=== PATIENT | male | born 1940 | race Caucasian/White ===

== ENCOUNTER 2020-08-07 19:09 | Emergency (ER) | payer MEDICARE, SELFPAY ==
[2020-08-07 19:37] VITALS: BP 173/98; PULSE 80; RESP 20; TEMP 36.2; O2SAT 99
[2020-08-07 20:26] VITALS: BP 181/94; PULSE 64; RESP 18; TEMP 36.9; O2SAT 97
--- NOTE | 2020-08-07 21:35 | ED.GENADULT ---
HPI - General Adult General Chief complaint: Skin/Abscess/Foreign Body Stated complaint: bump on abdomen Time Seen by Provider: 08/07/20 20:18 Source: patient Mode of arrival: ambulatory Limitations: no limitations History of Present Illness HPI narrative: Patient is 80 years old white male noticed a bulge at the right lower quadrant last night, today is getting worse. Patient denies any fever, chills, nausea, vomiting, urinary symptoms, constipation or diarrhea. Patient denies a history of abdominal surgery. Related Data Home Medications Medication Instructions Recorded Confirmed diclofenac sodium PO 08/07/20 linaclotide [Linzess] mcg 08/07/20 lisinopril 08/07/20 tamsulosin mg PO 08/07/20 Allergies Allergy/AdvReac Type Severity Reaction Status Date / Time No Known Allergies Allergy Mild Verified 08/07/20 20:40 Review of Systems Review of Systems: Narrative: CONSTITUTIONAL: Denies fever, chills, or sweats. EYES: Denies visual changes, redness, or discharge. ENT: Denies rhinorrhea, congestion, sore throat, or otalgia. CARDIOVASCULAR: Denies chest pain, palpitations, or edema. RESPIRATORY: Denies cough or dyspnea. GASTROINTESTINAL: Denies abdominal pain, nausea, vomiting, or diarrhea. GENITOURINARY: Denies dysuria or hematuria. SKIN: Denies rash or itching. MUSCULOSKELETAL: Denies back pain, joint pain, or myalgia. NEUROLOGIC: Denies headache, numbness, or weakness. PSYCHIATRIC: Denies anxiety or depression. PMFSH Social History Social History Gender identity (if verbalized by the patient): Male Exam Narrative: Exam Narrative: General appearance: Well-developed, well-nourished Skin: Normal color Head: Normocephalic, nontraumatic Eyes: Clear conjunctiva ENT: Oropharynx normal, ears normal, nose normal Neck: Supple, nontender Chest and respiratory: Airway patent, no respiratory distress, no accessory muscle use Heart: Regular rate/rhythm Abdomen: Soft, large bulging at the right lower quadrant, diffusely tender, firm in consistency, quiet bowel sounds no erythema, no rash Vascular: Normal peripheral pulses, normal capillary refill. Musculoskeletal: Normal range of motion, nontender back Neurologic: Alert and oriented ?3, ATHLETICS DIRECTOR is normal as tested, no gross motor deficit Course Course Emergency Course: Improved Consultations Consultation #1: Dr. Barahona See patient tomorrow Date: 08/07/20 Time: 21:38 Vital Signs Vital signs: Vital Signs Temperature 36.2 C L 08/07/20 19:37 Pulse Rate 80 08/07/20 19:37 Respiratory Rate 20 08/07/20 19:37 Blood Pressure 173/98 H 08/07/20 19:37 Pulse Oximetry 99 08/07/20 19:37 Temperature 36.9 C 08/07/20 20:26 Pulse Rate 64 08/07/20 20:26 Respiratory Rate 18 08/07/20 20:26 Blood Pressure 181/94 H 08/07/20 20:26 Pulse Oximetry 97 08/07/20 20:26 Procedures Other Procedure Procedure 1: Other Procedure: Right inguinal hernia reduction under constant pressure using my hands lasted for 3 minutes. Patient tolerated the procedure well. Medical Decision Making MDM Narrative Medical decision making narrative: Inguinal hernia is my concern, I was able to reduce it, patient will be discharged to follow-up with Dr. Barahona tomorrow Vital Signs Vital Signs: Vital Signs Temperature 36.2 C L 08/07/20 19:37 Pulse Rate 80 08/07/20 19:37 Respiratory Rate 20 08/07/20 19:37 Blood Pressure 173/98 H 08/07/20 19:37 Pulse Oximetry 99 08/07/20 19:37 Temperature 36.9 C 08/07/20 20:26 Pulse Rate 64 08/07/20 20:26 Respiratory Rate 18 08/07/20 20:26 Blood Pressure 181/94 H 08/07/20 20:26 P
[2020-08-07 21:50] VITALS: BP 186/97; PULSE 59; RESP 18; O2SAT 97
== END 2020-08-07 21:53 | disposition home or self-care (01) ==
PROVIDERS: Emergency Provider Emergency Medicine; PCP Family Medicine Adolescent Medicine
DX: K40.90 Unilateral inguinal hernia, without obstruction or gangrene, not specified as recurrent (principal)
CPT/HCPCS: 99282

== ENCOUNTER 2020-10-01 16:07 | Emergency (ER) | payer MEDICARE, SELFPAY ==
[2020-10-01 16:43] VITALS: BP 153/90; PULSE 81; RESP 17; TEMP 36.6; O2SAT 98
--- NOTE | 2020-10-01 17:32 | ED.GENADULT ---
HPI - General Adult General Chief complaint: Urogenital-Male Stated complaint: groin pain Time Seen by Provider: 10/01/20 16:56 Source: patient Mode of arrival: ambulatory Limitations: no limitations History of Present Illness HPI narrative: Patient is an 80-year-old male who presents with hernia in the right groin patient been seen in the ER for this prior and followed with surgery and opted not to have surgery and then this day had a recurrence of swelling and tenderness in the same location was unable to reduce the hernia. Patient presents in no distress notes mild aching pain in the right groin worse with palpation Related Data Home Medications Medication Instructions Recorded Confirmed diclofenac sodium PO 08/07/20 08/12/20 linaclotide [Linzess] mcg 08/07/20 08/12/20 lisinopril 08/07/20 08/12/20 tamsulosin mg PO 08/07/20 08/12/20 B-complex with vitamin C 1 cap PO DAILY 08/12/20 08/12/20 aspirin 500 mg tablet 500 mg PO DAILY 08/12/20 08/12/20 cyanocobalamin (vitamin B-12) 5,000 mcg PO DAILY 08/12/20 08/12/20 5,000 mcg capsule omeprazole 20 mg capsule,delayed 20 mg PO DAILY 08/12/20 08/12/20 release resveratrol 250 mg capsule mg PO 08/12/20 08/12/20 Allergies Allergy/AdvReac Type Severity Reaction Status Date / Time No Known Allergies Allergy Mild Verified 08/09/20 15:32 Review of Systems Review of Systems: All systems reviewed & are unremarkable except as noted in HPI and below PMFSH Past Medical History Medical History High blood pressure High cholesterol Surgical History Surgical History History of back surgery History of knee replacement bilateral Family History Family History Other No pertinent family history Social History Social History Smoking status: Former smoker Tobacco type: cigarettes Alcohol intake: never Gender identity (if verbalized by the patient): Male Exam Narrative: Exam Narrative: GENERAL: Well-appearing, well-nourished, and in no acute distress. HEAD: Normocephalic, atraumatic. EYES: PERRLA and EOMI. ENT: Nares clear, no rhinorrhea or epistaxis. Mucous membranes moist. CHEST: Clear to auscultation. No respiratory distress. No wheezes rales or rhonchi HEART: Regular rate and rhythm. No murmur heard. Normal peripheral pulses. ABDOMEN: Soft, nontender, nondistended EXTREMITIES: Normal range of motion. No edema. Hernia in the right groin no erythema or other abnormalities, hernia was manually reduced pain resolved after reduction SKIN: Warm, dry, no rash. NEURO: No focal deficits. Alert and oriented x3. Cranial nerves II through XII grossly intact PSYCH: Normal mood and affect. Course Course Emergency Course: Patient in the room in no distress at this time hemodynamically stable denying any pain relieved after reduction of the hernia Consultations Consultation #1: Discussed case with surgeon Dr. Peres who would like the patient to follow in clinic Date: 10/01/20 Time: 18:04 Vital Signs Vital signs: Vital Signs Temperature 97.8 F 10/01/20 16:43 Pulse Rate 81 10/01/20 16:43 Respiratory Rate 17 10/01/20 16:43 Blood Pressure 153/90 H 10/01/20 16:43 Pulse Oximetry 98 10/01/20 16:43 Temperature 97.8 F 10/01/20 16:43 Pulse Rate 81 10/01/20 16:43 Respiratory Rate 17 10/01/20 16:43 Blood Pressure 153/90 H 10/01/20 16:43 Pulse Oximetry 98 10/01/20 16:43 Procedures Other Procedure Procedure 1: Other Procedure: Right inguinal hernia manually reduced Medical Decision Making [facility] Narrative Medical decision making narrative: Patient presented with hernia right sided was reduced discussion was made with general surgery patient will follow up on an outpatient basis provided with reasons to r
== END 2020-10-01 18:16 | disposition home or self-care (01) ==
PROVIDERS: Emergency Provider Emergency Medicine; PCP Family Medicine Adolescent Medicine
DX: K40.90 Unilateral inguinal hernia, without obstruction or gangrene, not specified as recurrent (principal); Z79.82 Long term (current) use of aspirin; E78.00 Pure hypercholesterolemia, unspecified; I10 Essential (primary) hypertension; Z87.891 Personal history of nicotine dependence
CPT/HCPCS: 99282

== ENCOUNTER → 2020-10-14 01:20 | Outpatient (CLI) | payer MEDICARE, SELFPAY ==
[2020-10-14 19:15] LABS: SARS-CoV-2 RNA PCR Negative
== END ==
PROVIDERS: PCP Family Medicine Adolescent Medicine; Visit Provider Surgery
DX: Z01.812 Encounter for preprocedural laboratory examination (principal); Z20.822 Contact with and (suspected) exposure to COVID-19
CPT/HCPCS: C9803; U0003; U0005

== ENCOUNTER 2020-10-14 08:38 | Outpatient (CLI) | payer MEDICARE, SELFPAY ==
--- NOTE | 2020-10-14 14:45 | ECG_ITS ---
Measurements Intervals [place] Rate: 62 P: 69 RI: 225 QRS: -4 QRSD: 117 T: 70 QT: 379 QTc: 385 Interpretive Statements SINUS RHYTHM WITH FIRST DEGREE AV BLOCK INTRAVENTRICULAR CONDUCTION DELAY DELAYED PRECORDIAL R/S TRANSITION BASELINE ARTIFACT- I, II, III, AVR, AVL, AVF ABNORMAL ECG Electronically Signed On 10-14-2020 9:12:52 CDT by Edmond Ramos D.O.
== END 2020-10-14 08:39 | disposition home or self-care (01) ==
LOC: ANHSURGERY 08:41
PROVIDERS: PCP Family Medicine Adolescent Medicine; Visit Provider Surgery
DX: I10 Essential (primary) hypertension (principal); Z01.818 Encounter for other preprocedural examination; I44.0 Atrioventricular block, first degree; I45.9 Conduction disorder, unspecified
CPT/HCPCS: 93005

== ENCOUNTER 2020-10-17 01:43 | Day surgery (SDC) | payer MEDICARE, SELFPAY ==
[2020-10-11 13:27] VITALS: BMI 25.0
--- NOTE | 2020-10-14 16:07 | PM.SD2 ---
Same Day Admit/Disch: HPI History of Present Illness Chief complaint: Right inguinal hernia Narrative: Joselo Roberts is a 80 year old male Presented to the emergency room in July with an incarcerated right inguinal hernia. This was reduced in the emergency room and the patient went home. He followed up in the office soon thereafter and was recommended to proceed with right inguinal hernia repair. He decided not to go ahead. He was recently back in the emergency room on 10/01/2020 with an incarcerated right inguinal hernia. He is taken to surgery now for right inguinal hernia repair under anesthesia. FORMERLY [facility], [facility] Past Medical History Medical History (Updated 10/17/20 @ 13:11 by Ethan Barahona MD) BPH (benign prostatic hyperplasia) GERD (gastroesophageal reflux disease) High blood pressure High cholesterol Surgical History Surgical History History of back surgery History of knee replacement bilateral Family History Family History Other No pertinent family history Social History Social History Smoking packs per day: 1 Smoking cigarettes per day: 20.0 Years smoked: 2 Smoking pack-years: 2.00 Smoking status: Former smoker Tobacco type: cigarettes Smoking end date: 12/12/1960 Alcohol intake: never Substance use: never Living arrangements: alone Gender identity (if verbalized by the patient): Male Spiritual care concerns: No Same Day Admit/Disch: Med Pre-admit Medications Home Medications Medication Instructions Recorded Confirmed Type Linzess 145 mcg PO EVERY OTHER DAY 08/07/20 10/17/20 History lisinopril 40 mg PO QAM 08/07/20 10/17/20 History tamsulosin 0.4 mg PO HS 08/07/20 10/17/20 History aspirin 500 mg tablet 500 mg PO DAILY 08/12/20 10/17/20 History cyanocobalamin (vitamin B-12) 5,000 mcg PO DAILY 08/12/20 10/17/20 History 5,000 mcg capsule hydrocodone-acetaminophen 1 - 2 tablet PO Q6H PRN #7 tablet 10/17/20 Rx ibuprofen 600 mg PO Q6H PRN #14 tablet 10/17/20 Rx Exam Const: General: comfortable, no acute distress, alert and awake HENMT: Head: normocephalic and atraumatic Mouth: Yes Normal oral and palatal mucosa present Eyes: Conjunctivae: conjunctivae normal Pupils: Equal, round and reactive pupils present EOM: EOMs intact bilaterally Neck: Neck: normal visual inspection, no lymphadenopathy and nontender Resp: Effort & Inspection: normal respiratory effort Auscultation: clear to auscultation bilaterally Cardio: Rate: regular rate Rhythm: regular rhythm Heart sounds: no gallops, no murmurs and no rubs GI: Inspection: non-distended GI Palp: Yes Soft to palpation, No Tenderness to palpation present (GI), No Hepatomegaly present and No Splenomegaly present : Male General Exam: Yes hernia ( Right inguinal hernia) Penis: Yes normal penis Scrotum: scrotum normal and inguinal hernia on the right ( reducible right inguinal hernia) Testes: Testes normal Skin: Lesions: no lesions Rashes: no rashes Neuro: General: no focal motor deficits and CN's II-XI intact bilaterally Cranial nerves: Yes Equal, round and reactive pupils present, Yes Bilaterally intact EOM present, Yes facial symmetry and Yes Midline tongue present Speech: normal speech Motor exam (neuro): 5/5 motor strength present throughout and Motor abnormalities not present Extrem: General: no clubbing, cyanosis or edema and edema Psych: Affect: normal affect Thought process: Normal thought process present Insight: Good insight present (Psych) DS: Summary Time Spent with Patient Time attestation: Total time spent providing and/or coordinating discharge services: DS: Admitting Diagnosis Admitting Diagnosis Admitting Diagnosis: right inguinal hernia - reducible but has been incarcerated a couple of different times and had to go to the
--- NOTE | 2020-10-16 09:58 | WPDANESEPPF ---
Anes - Initial Pre Proc Eval Procedure: Operation Date: 10/17/20 12:00 Proposed Procedures p Right Inguinal Hernia Repair With Mesh - Ethan Barahona MD Date/Time: 10/16/20 09:58 Surgeon: Ethan Barahona MD Pre Op Diagnosis: Right inguinal hernia Patient Data Age: 80 Gender: M Height: 1.85 m Weight: 86 kg Allergies Allergy/AdvReac Type Severity Reaction Status Date / Time No Known Allergies Allergy Mild Verified 10/17/20 09:18 Home Medications Medication Instructions Recorded Confirmed Type linaclotide [Linzess] 145 mcg PO EVERY OTHER DAY 08/07/20 10/11/20 History lisinopril 40 mg PO QAM 08/07/20 10/11/20 History tamsulosin 0.4 mg PO HS 08/07/20 10/11/20 History aspirin 500 mg tablet 500 mg PO DAILY 08/12/20 10/11/20 History cyanocobalamin (vitamin B-12) 5,000 mcg PO DAILY 08/12/20 10/11/20 History 5,000 mcg capsule Patient hx anesthesia problems: none Family hx anesthesia problems: none PMFSH Past Medical History Medical History (Updated 10/16/20 @ 09:58 by Michael Yañez DO) BPH (benign prostatic hyperplasia) GERD (gastroesophageal reflux disease) High blood pressure High cholesterol Surgical History Surgical History History of back surgery History of knee replacement bilateral Family History Family History Other No pertinent family history Social History Social History Smoking packs per day: 1 Smoking cigarettes per day: 20.0 Years smoked: 2 Smoking pack-years: 2.00 Smoking status: Former smoker Tobacco type: cigarettes Smoking end date: 12/12/1960 Alcohol intake: never Substance use: never Living arrangements: alone Gender identity (if verbalized by the patient): Male Spiritual care concerns: No Anes - Eval Final PreProcedure Day of Procedure 10/16/20 09:58 Patient weight: normal Heart: regular rate and rhythm Lungs: clear to auscultation and normal air movement Airway: Mallampati scale class III Neurological: alert and oriented Last oral intake: >/= 8 hours ASA classification: III Emergent: no Anesthetic plan: proceed Anesthesia type and monitoring: general GIVS and standard monitoring Informed Consent: The patient's anesthetic plan and its attendant risks and benefits were discussed with the patient/family/POA. Questions were solicited and answers provided to the satisfaction of the patient/family/POA.
[2020-10-17 09:06] VITALS: BP 170/84; PULSE 55; RESP 18; TEMP 36.4; O2SAT 98
[2020-10-17] MEDS: LACTATED RINGERS 1,000 ML 30 ML IV CONT (09:30)
[2020-10-17] MEDS: ACETAMINOPHEN 500 MG TABLET 1000 MG PO (09:36)
[2020-10-17] MEDS: KETOROLAC 15 MG/ML VIAL (*BKC) IV PUSH (09:37)
--- NOTE | 2020-10-17 10:06 | SUR.PREOP ---
PT INFORMED OF SURGERY TIME DELAY, DENIES NEEDS
--- NOTE | 2020-10-17 10:24 | WPDHPUPDATE1 ---
History and Physical Update Update Date/Time: 10/17/20 10:24 History and Physical has been reviewed, including an updated exam of the patient. There are NO changes in the patient's condition. Risks, benefits, and alternatives have been discussed and questions answered. Patient agrees to proceed with procedure.
--- NOTE | 2020-10-17 11:36 | SUR.PREOP ---
PT UPDATED ON CONTINUED SURGERY TIME DELAY, DENIES NEEDS
[2020-10-17] MEDS: ceFAZolin 2 GM/D5W 50 ML 2 GM/50 ML BAG IVPB (11:56)
[2020-10-17] MEDS: BUPIVACAINE HCL 0.5% PF 30 ML VIAL 10 ML INFILTRATE (12:43)
[2020-10-17 13:05] VITALS: BP 138/74; PULSE 54; RESP 14; O2SAT 96
--- NOTE | 2020-10-17 13:07 | P.OP_ITS ---
Procedure Note - Detailed Date of procedure: 10/17/20 Pre-op diagnosis: Right inguinal hernia Right inguinal hernia Post-op diagnosis: other (Direct inguinal hernia) Procedure performed: Right inguinal hernia repair with 6 centimeter Parietex hernia mesh system Description of procedure: The patient was taken to surgery and IV sedation was administered. The right groin and genitalia were prepped and draped. The pro posed incision was marked on the skin and then local anesthesia was infiltrated into the skin and the deeper subcutaneous tissues. Incision was made and dissection was carried down through Chikis's fascia to the external oblique aponeurosis. Crossing veins were cauterized and divided. The external oblique aponeurosis was then exposed as was the external ring. Additional local anesthetic was infiltrated deep to the aponeurosis in the area of the spermatic cord and inguinal canal contents. We then opened the external oblique aponeurosis laterally and extended this incision medially through the external ring. The leaves of the aponeurosis were freed from the underlying inguinal canal contents. Care was taken not to injure the ileoinguinal nerve which was left attached to the spermatic cord. The spermatic cord was then mobilized medially on a Crapo drain. It was mobilized back to the internal ring. The direct hernia was dissected free from the spermatic cord. It was dissected back to its neck. The hernia defect was very medial in the inguinal canal. It was a small defect. The sac was then incised circumferentially just off the neck. It was divided through the transversalis fascia circumferentially. The hernia sac was then dunked into the retroperitoneum. A 6 centimeter Parietex hughes was chosen. It was folded to form a plug. The plug was placed in the defect. The edges were sutured to the transversalis fascia with interrupted 3 0 Vicryl suture. The hernia defect was also partially closed with interrupted 3 0 Vicryl suture. The patch was then cut to the appropriate size. It was placed over the inguinal canal floor with the lateral leaves passing beyond the cord. The cord and ileoinguinal nerve were then laid over the patch. The external oblique aponeurosis was closed with interrupted 3 0 Vicryl suture. Chikis's fascia was closed with interrupted 3 0 Vicryl suture. Four 0 Vicryl subcutaneous and subcuticular skin stitches were placed. The skin was finally closed with a running 4 0 Monocryl skin suture. The wound was dressed with Exofin surgical adhesive. Patient was awakened and taken to recovery in good condition. Sponge and needle counts were correct x2. Anesthesia: MAC and local (0.5% Marcaine mixed with Exparel) Surgeon: Ethan Barahona MD Registered Nurse First Assistant: Cora RAMIREZ Estimated blood loss (mL): 5 Drains: No Packing: No Pathology: none sent Complications: None Condition: stable Disposition: PACU Findings: Small direct inguinal hernia
[2020-10-17 13:30] VITALS: BP 152/75; PULSE 46; RESP 14; O2SAT 97
[2020-10-17 14:00] VITALS: BP 160/71; PULSE 47; RESP 14; O2SAT 100
[2020-10-17 14:30] VITALS: BP 147/70; PULSE 50; RESP 14; O2SAT 100
== END 2020-10-17 14:52 | disposition home or self-care (01) ==
PROVIDERS: PCP Family Medicine Adolescent Medicine; Visit Provider Surgery
PROC: (CPT 49505; principal; 2020-10-17 10:30)
DX: K40.90 Unilateral inguinal hernia, without obstruction or gangrene, not specified as recurrent (principal); Z79.82 Long term (current) use of aspirin; K21.9 Gastro-esophageal reflux disease without esophagitis; E78.00 Pure hypercholesterolemia, unspecified; N40.0 Benign prostatic hyperplasia without lower urinary tract symptoms; Z87.891 Personal history of nicotine dependence
CPT/HCPCS: 49505; 93005; A9270; C1781; C9290; C9803; J0690; J1885; J2704; J3010; J7120; U0003; U0005